=== PATIENT | female | born 1970 | race Caucasian/White ===

== ENCOUNTER 2017-03-28 13:27 | Emergency (ER) | payer OTHER ==
[2017-03-28 13:53] LABS: INFLUENZA A B NEGATIVE FOR FLU A/B (NEGATIVE)
[2017-03-28 14:04] VITALS: BP 134/69; PULSE 75; RESP 16; TEMP 98.1; O2SAT 98
--- NOTE | 2017-03-28 14:06 | C.PDOC ---
History Of Present Illness 46 yr old female presents to the ER with complaints of sore throat, body aches, runny nose, sinus pressure and non-productive cough for 1 day. Patient is a L&D nurse. She denies fever/chills, chest pain, SOB, nausea, vomiting, abdominal pain, diarrhea or headache. Time Seen by Provider: 03/28/17 13:30 Chief Complaint (Nursing): Cough, Cold, Congestion History Per: Patient History/Exam Limitations: no limitations Onset/Duration Of Symptoms: Days (1) Current Symptoms Are (Timing): Still Present Sick Contacts (Context): Individual(s) At Work Severity: Moderate Past Medical History Reviewed: Historical Data, Nursing Documentation, Vital Signs Vital Signs: Last Vital Signs Temp 98.1 F 03/28/17 14:04 Pulse 75 03/28/17 14:04 Resp 16 03/28/17 14:04 BP 134/69 03/28/17 14:04 Pulse Ox 98 03/28/17 14:12 - Medical History PMH: No Chronic Diseases Family History: States: No Known Family Hx - Social History Hx Alcohol Use: No Hx Substance Use: No Review Of Systems Except As Marked, All Systems Reviewed And Found Negative. Constitutional: Positive for: Other ((+) body aches). Negative for: Fever, Chills ENT: Positive for: Nose Congestion, Throat Pain (sore throat) Cardiovascular: Negative for: Chest Pain, Palpitations Respiratory: Positive for: Cough (non-productive). Negative for: Shortness of Breath Gastrointestinal: Negative for: Nausea, Vomiting, Abdominal Pain, Diarrhea Genitourinary: Negative for: Dysuria Neurological: Negative for: Headache Physical Exam - Physical Exam Appears: Well, Non-toxic, No Acute Distress Skin: Warm, Dry, No Rash Eye(s): bilateral: Normal Inspection Ear(s): Bilateral: Normal Nose: Discharge (rhinorrhea) Oral Mucosa: Moist Lips: Normal Appearing Throat: No Drooling, Other ((+) swollen tonsils with mild exudates) Neck: Normal, Supple Cardiovascular: Rhythm Regular Respiratory: Normal Breath Sounds, No Rales, No Rhonchi, No Stridor, No Wheezing Gastrointestinal/Abdominal: Normal Exam, Bowel Sounds, Soft, No Tenderness Extremity: Normal ROM, No Swelling Neurological/Psych: Oriented x3 ED Course And Treatment O2 Sat by Pulse Oximetry: 98 (RA) Pulse Ox Interpretation: Normal Progress Note: PLAN: Influenza, RSV swabs ordered and reviewed; both were negative. Patient given Rxs for Tessalon, Sudafed and Tamiflu. She was instructed to start Tamiflu only if she develops fever with her symptoms, and to follow up with PMD in 1-2 days. She understands she should return to ED if symptoms worsen. Disposition Counseled Patient/Family Regarding: Studies Performed, Diagnosis, Need For Followup, Rx Given - Disposition Referrals: [facility] [Outside] Disposition: HOME/ ROUTINE Disposition Time: 14:00 Condition: STABLE Additional Instructions: FOLLOW UP WITH YOUR DOCTOR/CLINIC IN 1-2 DAYS USE MEDICATIONS NEEDED DRINK PLENTY OF FLUIDS RETURN TO ER IF SYMPTOMS WORSEN Prescriptions: Benzonatate [Tessalon Perles] 100 mg PO BID PRN #15 sgl PRN Reason: Cough Oseltamivir Phosphate [Tamiflu] 75 mg PO BID #10 capsule Pseudoephedrine [Sudafed] 60 mg PO Q6 PRN #15 tab PRN Reason: Nasal Congestion Instructions: Upper Respiratory Infection (ED), Viral Syndrome (ED) Forms: [employer] (Vincentian) Print Language: ICELANDIC - Clinical Impression Clinical Impression: Influenza-like illness, Viral disease - Scribe Statement The provider has reviewed the documentation as recorded by the Freya Jang Provider Attestation: All medical record entries made by the Freya were at my direction and personally dictated by me. I have reviewed the chart and agree that the record accurately reflects my personal performance of the history, physical exam, medical decision making, and the department course for this patient. I have also personally directed, reviewed, and agree with the discharge instructions and disposition.
== END 2017-03-28 14:10 | disposition home or self-care (01) ==
LOC: C.ER 13:27
DX: J11.1 Influenza due to unidentified influenza virus with other respiratory manifestations (principal); B34.9 Viral infection, unspecified